=== PATIENT | male | born 1995 | race Caucasian/White ===

== ENCOUNTER 2017-11-22 18:14 | Emergency (ER) | payer SELFPAY ==
[~2017-11-22] VITALS: Ht 188 cm; Wt 86.2 kg
[2017-11-22 18:37] VITALS: BP 114/65
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
[2017-11-22] MEDS ORDERED: ROBAXIN500 MG PO (20:07)
[2017-11-22] MEDS ORDERED: LIDODERM700 M1 TOPIC (20:07)
[2017-11-22] MEDS ORDERED: IBUPROFEN600 MG ORAL (20:07)
[2017-11-22 20:16] VITALS: BP 114/65
== END 2017-11-22 20:15 | disposition home or self-care (01) ==
LOC: EMR 19:03
DX: M62.830 Muscle spasm of back (principal); M62.838 Other muscle spasm; V43.52XA Car driver injured in collision with other type car in traffic accident, initial encounter; Y92.410 Unspecified street and highway as the place of occurrence of the external cause
CPT/HCPCS: 99283